=== PATIENT | female | born 1955 | race African-American/Black ===

== ENCOUNTER 2022-03-21 09:23 | Outpatient (CLI) | payer MEDICARE | END 2022-03-21 09:24 | disposition home or self-care (01) | LOC: BICMAMMO 09:23 | PROVIDERS: ATTEND Nurse Practitioner Family | DX: Z12.31 Encounter for screening mammogram for malignant neoplasm of breast (principal) | CPT/HCPCS: 77063; 77067 ==

== ENCOUNTER 2023-04-16 08:18 | Outpatient (CLI) | payer MEDICARE | END 2023-04-16 08:19 | disposition home or self-care (01) | LOC: BICRAD 08:18 | PROVIDERS: ATTEND Student in an Organized Health Care Education/Training Program | DX: M72.2 Plantar fascial fibromatosis (principal) ==

== ENCOUNTER 2023-06-02 09:32 | Outpatient (CLI) | payer MEDICARE | END 2023-06-02 09:33 | disposition home or self-care (01) | LOC: BICMAMMO 09:32 | PROVIDERS: ATTEND Nurse Practitioner Family | DX: Z12.31 Encounter for screening mammogram for malignant neoplasm of breast (principal); Z80.3 Family history of malignant neoplasm of breast; Z85.41 Personal history of malignant neoplasm of cervix uteri | CPT/HCPCS: 77063; 77067 ==

== ENCOUNTER 2023-12-07 23:02 | Emergency (ER) | payer MEDICARE ==
[2023-12-08] MEDS ORDERED: Ketorolac Tromethamine 30 MG (1 mL) VIAL ONE (00:31)
[2023-12-08] MEDS ORDERED: Morphine 10 MG/ML VIAL ONE (02:04)
[2023-12-08] MEDS ORDERED: Ondansetron ODT 4 MG TAB ONE (02:04)
== END 2023-12-08 03:10 | disposition home or self-care (01) ==
LOC: ERS 23:02
DX: S46.912A Strain of unspecified muscle, fascia and tendon at shoulder and upper arm level, left arm, initial encounter (principal); R07.89 Other chest pain; I10 Essential (primary) hypertension; E03.9 Hypothyroidism, unspecified; F17.210 Nicotine dependence, cigarettes, uncomplicated; X50.9XXA Other and unspecified overexertion or strenuous movements or postures, initial encounter; Z55.6 Problems related to health literacy; Z79.899 Other long term (current) drug therapy
CPT/HCPCS: 71046; 93005; 96372; J1885; J2270; Q0162

== ENCOUNTER 2024-12-11 08:52 | Emergency (ER) | payer MEDICARE, SELFPAY ==
[2024-12-11] MEDS ORDERED: Ketorolac Tromethamine 30 MG (1 mL) VIAL ONE (09:25)
[2024-12-11] MEDS ORDERED: Lorazepam 2 MG/ML VIAL ONE (09:25)
== END 2024-12-11 11:05 | disposition home or self-care (01) ==
LOC: ERS 08:52
DX: M43.6 Torticollis (principal); F17.210 Nicotine dependence, cigarettes, uncomplicated; I10 Essential (primary) hypertension
CPT/HCPCS: 72125; 96372; J1885; J2060

== ENCOUNTER 2025-09-05 13:35 | Outpatient (CLI) | payer OTHER | END 2025-09-05 13:36 | disposition home or self-care (01) | LOC: BICMAMMO 13:35 | PROVIDERS: ATTEND Family Medicine | DX: Z12.31 Encounter for screening mammogram for malignant neoplasm of breast (principal); Z80.3 Family history of malignant neoplasm of breast; Z85.41 Personal history of malignant neoplasm of cervix uteri | CPT/HCPCS: 77063; 77067 ==